=== PATIENT | female | born 1945 | race Caucasian/White ===

== ENCOUNTER 2016-09-26 07:21 | Day surgery (SDC) | payer OTHER, BC ==
[~2016-09-26] VITALS: Ht 156.2 cm; Wt 108.4 kg
[~2016-09-26 07:21] MED LIST: DIOVAN80 MG PO
[2016-09-26] MEDS ORDERED: DIOVAN80 MG PO (07:49)
[2016-09-26 07:50] VITALS: BP 178/82
[2016-09-26 11:15] VITALS: BP 189/82
[2016-09-26 11:40] VITALS: BP 179/79
== END 2016-09-26 11:45 | disposition home or self-care (01) ==
LOC: SDC 07:21
DX: H43.822 Vitreomacular adhesion, left eye (principal); H35.342 Macular cyst, hole, or pseudohole, left eye; H35.372 Puckering of macula, left eye; I10 Essential (primary) hypertension; E66.9 Obesity, unspecified; Z68.41 Body mass index [BMI] 40.0-44.9, adult; K21.9 Gastro-esophageal reflux disease without esophagitis; E78.5 Hyperlipidemia, unspecified; E55.9 Vitamin D deficiency, unspecified; E53.8 Deficiency of other specified B group vitamins; Z82.49 Family history of ischemic heart disease and other diseases of the circulatory system; Z80.0 Family history of malignant neoplasm of digestive organs
CPT/HCPCS: J0690; J0713; J2795; J3300